=== PATIENT | female | born 1960 | race Caucasian/White ===

== ENCOUNTER 2023-09-29 06:20 | Emergency (ER) | payer OTHER, SELFPAY ==
[2023-09-29 06:22] VITALS: BP 140/82
--- NOTE | 2023-09-29 07:09 | ED.GENMED ---
History of Present Illness
General
Chief Complaint: Musculo-Skeletal Complaint
Source: patient
Exam Limitations: none
Time Seen by Provider: 09/29/23 06:30
Travel History
Have you had any contact with someone who has COVID-19?: No
Do you have any symptoms of coronavirus? Fever > 100 degrees, chills, cough, shortness of breath, sore throat, loss of taste or smell, muscle aches, or headache?: No
History of Present Illness
History of Present Illness:
63-year-old female presents with left knee injury. Patient states that she was climbing up on a workbench and that she had to try to plug something in. She then put her left foot on the ground and it bent inward. She states she felt and heard a
pop. Patient reports she iced it all night but today it hurts when she tries to bear weight. She notes swelling as well. No numbness or tingling. No other injuries.
Past History
Past History
ED Past Medical History: Hypercholesterolemia and Psychiatric
Phy Exam
Physical Exam
Physical Exam:
CONSTITUTIONAL Vital signs reviewed, Patient alert and oriented to person, place and time. Well-appearing
HEAD atraumatic, normocephalic.
EYES eyelids normal to inspection, Extraocular muscles intact, Conjunctiva normal, Sclera normal.
NECK normal range of motion, Trachea midline, no jugular venous distention.
RESP no respiratory distress
BACK No obvious deformities
UPPER EXTREMITY Gross Range of motion normal, gross motor strength normal
LOWER EXTREMITY Gross motor strength normal, effusion noted to the left knee. Patella nontender. Tibia nontender. Femur nontender. No pain with valgus stress. No pain with varus stress. Question slight laxity with anterior drawer. Exam
somewhat limited due to pain
NEURO Speech normal, No focal motor deficits include, Rumely coma scale 15, Memory normal, Cranial Nerves intact to screening exam.
SKIN Skin warm, dry, and normal in color.
PSYCHIATRIC Patient oriented to person place and time, Normal affect.
Course
Orders/Labs/Results
Orders:
Orders
09/29/23 06:48
Knee, Left 4 or More Views [CR Knee - Left 4 Or More View*] Urgent
Comment:
Reason For Exam: fall
09/29/23 07:09
Crutches-Treatment ONCE
Knee Immobilizer Left-Treatmen ONCE
Vital Signs
Initial and Last Documented VS:
Initial Vital Signs
Temp Pulse Resp BP Pulse Ox
97.4 F 88 18 140/82 98
09/29/23 06:22 09/29/23 06:22 09/29/23 06:22 09/29/23 06:22 09/29/23 06:22
Last Documented Vital Signs
Temp Pulse Resp BP Pulse Ox
97.4 F 88 18 140/82 98
09/29/23 06:22 09/29/23 06:22 09/29/23 06:22 09/29/23 06:22 09/29/23 06:22
MDM/Problems Addressed
MDM/Problems Addressed:
Knee effusion, knee injury
*Radiology
Radiology exam reviewed: preliminary read by ED provider (No fracture)
*Pulse Oximetry
Patient hypoxic: no
*Critical Care Note
Total Time (30-74mins, 75-104mins- exclusive of procedures): Not Applicable
Data Reviewed
Source: patient
Further Testing Considered But Not Given:
Considered arthrocentesis but patient declined at this time
Patient Management
Escalation/DeEscalation of care consider admission/obs:
Offered arthrocentesis for comfort but patient declines at this time. Knee immobilizer, crutches and outpatient orthopedic follow-up. MRI recommended
ED Attending Note
-
Portions of this chart may have been created with voice recognition software.� Occasional wrong word or��sound alike� substitutions may have occurred due to the inherent limitations of voice recognition software.
Discharge Plan
Departure
Patient Disposition: Home (Routine Discharge)
Date of Disposition: 09/29/23
Time of Disposition: 07:16
Patient with high blood pressure during this ER visit?: Yes
Discharge Problem:
Effusion of knee, Injury of knee, left
Instructions: Knee Immobilizer (DC), Ligament Injuries in the Knee, How to Use a Shoulder Sling, BLOOD PRESSURE
Prescriptions:
No Action
tramadol 50 MG tablet
50 mg PO Q6HPRN PRN (Reason: Pain) Qty: 15 0RF
Referrals:
Mikael Samuels MD [Active] -
Stand Alone Forms: Return to Work
Activity Restrictions/Additional Instructions:
Please ice your knee and elevate. Please use Naprosyn as discussed to assist with pain and swelling. Please see orthopedics in the next 1 to 2 weeks for follow-up and reevaluation as you may need an MRI to further assess your injury. Return
immediately for intractable pain, fevers or any other concerns.
Interventions
Interventions:
*Risk Screen - Suicide Last Done: 09/29/23 06:22
*General Assessment Last Done: 09/29/23 07:30
*Neglect/Abuse Screening Last Done: 09/29/23 06:22
ED- Fall Risk Assessment Last Done: 09/29/23 07:30
*ED COVID-19 Vaccine History Last Done: 09/29/23 07:30
*Nursing Disposition Last Done: 09/29/23 07:30
ED-Musculoskeletal Assessment Last Done: 09/29/23 07:30
Discharge Date and Time
Discharge Date/Time: 09/29/23 07:35
Print Language: SAMI
== END 2023-09-29 07:35 | disposition home or self-care (01) ==
LOC: EMR 06:20
PROVIDERS: EMERGENCY PHYSICIAN Emergency Medicine; FAMILY PHYSICIAN Family Medicine
DX: S89.92XA Unspecified injury of left lower leg, initial encounter (principal); M25.462 Effusion, left knee; W19.XXXA Unspecified fall, initial encounter; R03.0 Elevated blood-pressure reading, without diagnosis of hypertension; E78.00 Pure hypercholesterolemia, unspecified
CPT/HCPCS: 99283; 29505; 73564